=== PATIENT | male | born 1960 | race Caucasian/White ===

== ENCOUNTER → 2023-12-23 08:06 | Outpatient (REF) | payer BC, SELFPAY | LOC: HWRCS 08:06 | PROVIDERS: ATTENDING PHYSICIAN Nurse Practitioner Family; FAMILY PHYSICIAN Physician Assistant Medical | DX: R94.31 Abnormal electrocardiogram [ECG] [EKG] (principal) | CPT/HCPCS: 93306 ==

== ENCOUNTER → 2024-08-27 07:25 | Outpatient (REF) | payer BC, SELFPAY | LOC: HWRCS 07:25 | PROVIDERS: ATTENDING PHYSICIAN Nuclear Medicine Nuclear Cardiology; FAMILY PHYSICIAN Nurse Practitioner Family | DX: R00.2 Palpitations (principal); E11.9 Type 2 diabetes mellitus without complications; E78.5 Hyperlipidemia, unspecified; R06.2 Wheezing | CPT/HCPCS: 78452; 93017; A9500 ==

== ENCOUNTER → 2025-03-21 11:42 | Outpatient (REF) | payer BC, SELFPAY | LOC: DHSLP 11:42 | PROVIDERS: ATTENDING PHYSICIAN Internal Medicine Critical Care Medicine | DX: G47.30 Sleep apnea, unspecified (principal); R06.83 Snoring | CPT/HCPCS: 95800 ==